=== PATIENT | male | born 1995 | race Caucasian/White ===

== ENCOUNTER 2023-10-05 17:23 | Inpatient (IN) | payer MEDICAID ==
[~2023-10-05] VITALS: Ht 180.3 cm; Wt 74.4 kg
[~2023-10-05 17:23] MED LIST: QUET100T PO; SERT-158 PO
[2023-10-05 18:25] LABS: BASOPHILS % (AUTO) 0.5 % (0.0-2.0); EOSINOPHILS % (AUTO) 0.3 % (1.0-6.0); HEMATOCRIT 38.9 % (41-53); HEMOGLOBIN 12.8 g/dL (13.5-17.5); LYMPHOCYTES # (AUTO) 1.4 K/uL (1.0-4.8); LYMPHOCYTES % (AUTO) 17.1 % (22.0-44.0); MEAN CORPUSCULAR HEMOGLOBIN 27.7 pg (26.0-34.0); MEAN CORPUSCULAR HGB CONC 32.8 G/dL (31.0-37.0); MEAN CORPUSCULAR VOLUME 84 fL (80-100); MONOCYTES # (AUTO) 0.8 K/uL (0.1-1.0); MONOCYTES % (AUTO) 9.8 % (2.0-9.0); NEUTROPHILS # (AUTO) 5.9 K/uL (1.8-7.7); NEUTROPHILS % (AUTO) 72.3 % (40.0-70.0); PLATELET COUNT (AUTO) 341 K/uL (150-450); RED BLOOD CELL COUNT(AUTO) 4.61 MIL/uL (4.50-5.90); RED CELL DISTRIBUTION WIDTH 15.4 % (11.5-14.5); WHITE BLOOD COUNT (AUTO) 8.2 K/uL (4.5-11.0)
[2023-10-05 18:35] LABS: ANION GAP 9 mmol/L (8-16); CARBON DIOXIDE 28 mmol/L (22-29); CHLORIDE 99 mmol/L (98-107); CREATININE 1.05 mg/dL (0.60-1.30); GLOMERULAR FILTR. RATE CALC > 60 mL/min (>60); GLUCOSE,RANDOM 122 mg/dL (70-110); POTASSIUM 3.4 mmol/L (3.5-5.1); SODIUM SERUM 136 mmol/L (136-145); UREA NITROGEN, BLOOD 9 mg/dL (7-18)
[2023-10-05 18:37] LABS: ALCOHOL, BLOOD (SERUM) < 3 mg/dL (0-10)
[2023-10-05 18:54] LABS: COVID AG,FIA SOURCE NPH
[2023-10-05 19:02] LABS: APPEARANCE,URINE CLEAR (CLEAR); BILIRUBIN,URINE NEGATIVE (NEGATIVE); GLUCOSE, URINE (UA) NEGATIVE (NEGATIVE); KETONES,URINE NEGATIVE (NEGATIVE); LEUKOCYTE ESTERASE ,URINE NEGATIVE (NEGATIVE); NITRATE,URINE NEGATIVE (NEGATIVE); OCCULT BLOOD,URINE NEGATIVE (NEGATIVE); PROTEIN,URINE NEGATIVE (NEGATIVE); SPECIFIC GRAVITIY, URINE 1.006 (1.003-1.030); UROBILINOGEN,URINE <=1.0 mg/dL (<=1.0)
[2023-10-05 19:04] LABS: COLOR,URINE DK YELLOW (YELLOW)
[2023-10-05 19:11] LABS: ALCOHOL, URINE DRUG SCREEN NEGATIVE (NEGATIVE); AMPHET/METH SCREEN,URINE POSITIVE (NEGATIVE); BARBITURATE SCREEN, URINE NEGATIVE (NEGATIVE); BENZODIAZEPINES SCREEN,URINE NEGATIVE (NEGATIVE); CANNABINOID SCREEN,URINE POSITIVE (NEGATIVE); COCAINE SCREEN,URINE NEGATIVE (NEGATIVE); METHADONE SCREEN, URINE NEGATIVE (NEGATIVE); OPIATE SCREEN,URINE NEGATIVE (NEGATIVE); PHENCYCLIDINE SCREEN,URINE NEGATIVE (NEGATIVE)
[2023-10-05 19:20] LABS: SARS-COV2 (COVID) ANTIGEN,FIA Negative (Negative)
[2023-10-05] MEDS: LORazepam 1 MG TABLET PO ONE (22:35)
[2023-10-06] MEDS: QUEtiapine FUMARATE 100 MG TABLET PO PRN (10:03)
[2023-10-06] MEDS: LORazepam 2 MG TABLET PO PRN (10:03)
[2023-10-07] MEDS: POTASSIUM CHLORIDE 20 MEQ ER TABLET PO ONE (20:16)
[2023-10-07 22:07] VITALS: BP 125/78; PULSE 72; RESP 18; TEMP 97.2; O2SAT 99
[2023-10-08] MEDS ORDERED: PNEUMOCOCCAL VACCINE POLYVALENT 0.5 ML SYRINGE [PPSV23] IM. ONE (01:15)
[2023-10-08 08:25] VITALS: BP 129/78; PULSE 88; RESP 18; TEMP 98.2; O2SAT 99
[2023-10-08] MEDS ORDERED: LOPERAMIDE HCL 2 MG CAPSULE PO PRN (09:00)
[2023-10-08] MEDS ORDERED: ALBUTEROL SULFATE HFA 90 MCG/PUFF 8 GM INHALER IH PRN (09:00)
[2023-10-08] MEDS ORDERED: ONDANSETRON HCL 4 MG TABLET PO PRN (09:00)
[2023-10-08] MEDS ORDERED: ACETAMINOPHEN 325 MG TABLET PO PRN (09:00)
[2023-10-08] MEDS ORDERED: MAG HYDROX/ALUMINUM HYD/SIMETH ES 30 ML SUSPENSION UDCUP PO PRN (09:00)
[2023-10-08] MEDS ORDERED: CloNIDine HCL 0.1 MG TABLET PO PRN (09:00)
[2023-10-08] MEDS ORDERED: MAGNESIUM HYDROXIDE SUSPENSION 30 ML UDCUP PO PRN (09:00)
[2023-10-08] MEDS ORDERED: IBUPROFEN 400 MG TABLET PO PRN (09:00)
[2023-10-08] MEDS ORDERED: DOCUSATE SODIUM 100 MG CAPSULE PO PRN (09:00)
[2023-10-08] MEDS ORDERED: PETROLATUM,WHITE 28 GM JELLY TP PRN (09:00)
[2023-10-08] MEDS ORDERED: NICOTINE 14 MG/24 HOUR PATCH TD PRN (09:00)
[2023-10-08] MEDS ORDERED: GuaiFENesin/D-METHORPHAN [SUGAR-FREE] 200-20MG/10 ML SYRUP UDCUP PO PRN (09:00)
[2023-10-08] MEDS: SERTRALINE HCL 50 MG TABLET PO SCH (12:35)
[2023-10-08 20:06] VITALS: BP 110/63; PULSE 101; RESP 16; TEMP 98.7; O2SAT 95
[2023-10-08] MEDS: QUEtiapine FUMARATE 100 MG TABLET PO SCH (20:30)
[2023-10-09 08:07] VITALS: BP 107/66; PULSE 66; RESP 16; TEMP 97.5; O2SAT 96
[2023-10-09 09:05] LABS: HEMOGLOBIN A1C 4.3 % (3.8-5.6)
[2023-10-09 09:27] LABS: THYROID STIMULATING HORMONE 1.66 uIU/mL (0.36-3.74)
[2023-10-09 20:09] VITALS: BP 115/67; PULSE 96; RESP 16; TEMP 98.6; O2SAT 96
[2023-10-09] MEDS: ZOLPIDEM TARTRATE 10 MG TABLET PO PRN (20:46)
[2023-10-10 04:40] VITALS: BP 115/69; PULSE 94; RESP 16; TEMP 97.8; O2SAT 97
[2023-10-10 08:02] VITALS: BP 112/67; PULSE 96; RESP 17; TEMP 97.9; O2SAT 97
[2023-10-10] MEDS ORDERED: QUET100T34 PO (11:09)
[2023-10-10] MEDS ORDERED: SERT-439 PO (11:09)
== END 2023-10-10 12:15 | disposition home or self-care (01) | DRG 750 ==
LOC: EMS 17:23 → B2X 10-07 17:50
PROVIDERS: ADMIT Psychiatry & Neurology Psychiatry; ATTEND Psychiatry & Neurology Psychiatry
PROC: GZHZZZZ Group Psychotherapy (ICD-10-PCS; principal; 2023-10-08)
PROC: GZ51ZZZ Individual Psychotherapy, Behavioral (ICD-10-PCS; 2023-10-08)
DX: F25.1 Schizoaffective disorder, depressive type (principal); R45.851 Suicidal ideations; F12.10 Cannabis abuse, uncomplicated; Z20.822 Contact with and (suspected) exposure to COVID-19; F15.10 Other stimulant abuse, uncomplicated; E87.6 Hypokalemia; D64.9 Anemia, unspecified; Z79.899 Other long term (current) drug therapy
CPT/HCPCS: 80048; 80061; 80307; 81003; 83036; 84132; 84443; 85025; 99285; G0480

== ENCOUNTER 2023-12-22 09:42 | Inpatient (IN) | payer MEDICAID, OTHER ==
[~2023-12-22] VITALS: Ht 177.8 cm; Wt 77.6 kg
[~2023-12-22 09:42] MED LIST changes: -QUET100T PO; +QUET100T34 PO; -SERT-158 PO; +SERT-439 PO
[2023-12-22 10:16] LABS: COVID AG,FIA SOURCE NASAL SWAB
[2023-12-22 10:18] LABS: BASOPHILS % (AUTO) 0.3 % (0.0-2.0); EOSINOPHILS % (AUTO) 0.4 % (1.0-6.0); HEMATOCRIT 39.9 % (41-53); LYMPHOCYTES # (AUTO) 2.4 K/uL (1.0-4.8); LYMPHOCYTES % (AUTO) 17.8 % (22.0-44.0); MEAN CORPUSCULAR HEMOGLOBIN 26.7 pg (26.0-34.0); MEAN CORPUSCULAR HGB CONC 32.7 G/dL (31.0-37.0); MEAN CORPUSCULAR VOLUME 82 fL (80-100); MONOCYTES # (AUTO) 1.1 K/uL (0.1-1.0); MONOCYTES % (AUTO) 8.2 % (2.0-9.0); NEUTROPHILS # (AUTO) 9.7 K/uL (1.8-7.7); NEUTROPHILS % (AUTO) 73.3 % (40.0-70.0); PLATELET COUNT (AUTO) 234 K/uL (150-450); RED BLOOD CELL COUNT(AUTO) 4.88 MIL/uL (4.50-5.90); RED CELL DISTRIBUTION WIDTH 17.2 % (11.5-14.5); WHITE BLOOD COUNT (AUTO) 13.3 K/uL (4.5-11.0)
[2023-12-22 10:28] LABS: ANION GAP 6 mmol/L (8-16); CALCIUM, TOTAL 8.2 mg/dL (8.8-10.5); CARBON DIOXIDE 30 mmol/L (22-29); CHLORIDE 100 mmol/L (98-107); CREATININE 0.85 mg/dL (0.60-1.30); GLOMERULAR FILTR. RATE CALC > 60 mL/min (>60); GLUCOSE,RANDOM 82 mg/dL (70-110); POTASSIUM 4.3 mmol/L (3.5-5.1); SODIUM SERUM 136 mmol/L (136-145); UREA NITROGEN, BLOOD 10 mg/dL (7-18)
[2023-12-22 10:38] LABS: SARS-COV2 (COVID) ANTIGEN,FIA Negative (Negative)
[2023-12-22 10:48] LABS: ALCOHOL, BLOOD (SERUM) < 3 mg/dL (0-10)
[2023-12-22 11:07] LABS: AMPHET/METH SCREEN,URINE NEGATIVE (NEGATIVE); BARBITURATE SCREEN, URINE NEGATIVE (NEGATIVE); BENZODIAZEPINES SCREEN,URINE NEGATIVE (NEGATIVE); CANNABINOID SCREEN,URINE POSITIVE (NEGATIVE); COCAINE SCREEN,URINE NEGATIVE (NEGATIVE); METHADONE SCREEN, URINE NEGATIVE (NEGATIVE); OPIATE SCREEN,URINE NEGATIVE (NEGATIVE); PHENCYCLIDINE SCREEN,URINE NEGATIVE (NEGATIVE)
[2023-12-22 11:09] LABS: ALCOHOL, URINE DRUG SCREEN NEGATIVE (NEGATIVE)
[2023-12-22 12:29] LABS: INFLUENZA TYPE A NEGATIVE FOR TYPE A (NEGATIVE); INFLUENZA TYPE B NEGATIVE FOR TYPE B (NEGATIVE)
[2023-12-22] MEDS: LORazepam 2 MG TABLET PO ONE (12:57)
[2023-12-22] MEDS: ACETAMINOPHEN 325 MG TABLET PO ONE (12:57)
[2023-12-22] MEDS: IBUPROFEN 400 MG TABLET PO ONE (19:53)
[2023-12-22] MEDS: HALOPERIDOL 5 MG TABLET PO PRN (19:53)
[2023-12-23] MEDS: LORazepam 2 MG TABLET PO PRN (01:31)
[2023-12-23] MEDS: ZOLPIDEM TARTRATE 10 MG TABLET PO PRN (01:31)
[2023-12-23 20:20] VITALS: BP 120/74; PULSE 122; RESP 18; TEMP 97.2; O2SAT 96
[2023-12-23 21:20] VITALS: BP 139/80; PULSE 120; RESP 18; TEMP 102; O2SAT 96
[2023-12-23 21:41] VITALS: BP 120/74; PULSE 122; RESP 18; TEMP 97.2; O2SAT 96
[2023-12-23] MEDS ORDERED: IBUPROFEN 200 MG TABLET PO PRN (22:15)
[2023-12-23] MEDS: ACETAMINOPHEN 325 MG TABLET PO PRN (22:19)
[2023-12-23 22:20] VITALS: BP 129/74; PULSE 115; RESP 18; TEMP 100.4; O2SAT 97
[2023-12-23 23:20] VITALS: BP 117/72; PULSE 110; RESP 17; TEMP 97.4; O2SAT 96
[2023-12-24] VITALS (7 sets, daily range): BP systolic 104–146; BP diastolic 62–78; PULSE 98–115; RESP 16–22; TEMP 97.1–99.8; O2SAT 95–98
[2023-12-24] MEDS: DIVALPROEX SODIUM 500 MG DR TABLET PO SCH (17:19)
[2023-12-25 00:04] VITALS: BP 146/78; PULSE 108; RESP 18; TEMP 97.1; O2SAT 98
[2023-12-25] MEDS: MAGNESIUM HYDROXIDE SUSPENSION 30 ML UDCUP PO PRN (08:28)
[2023-12-25 09:11] VITALS: BP 107/84; PULSE 122; RESP 18; TEMP 97.6; O2SAT 96
[2023-12-25 09:14] VITALS: BP 107/84; PULSE 122; RESP 18; TEMP 97.6; O2SAT 96
[2023-12-25] MEDS ORDERED: DIVA-112 PO (12:14)
[2023-12-25] MEDS ORDERED: DIVA-153 PO (12:17)
[2023-12-25] MEDS ORDERED: CloNIDine HCL 0.1 MG TABLET PO PRN (16:30)
[2023-12-25] MEDS ORDERED: MAG HYDROX/ALUMINUM HYD/SIMETH ES 30 ML SUSPENSION UDCUP PO PRN (16:30)
[2023-12-25] MEDS ORDERED: DOCUSATE SODIUM 100 MG CAPSULE PO PRN (16:30)
[2023-12-25] MEDS ORDERED: MAGNESIUM HYDROXIDE SUSPENSION 30 ML UDCUP PO PRN (16:30)
[2023-12-25] MEDS ORDERED: BACITRACIN 28 GM OINTMENT TP PRN (16:30)
[2023-12-25] MEDS ORDERED: ALBUTEROL SULFATE HFA 90 MCG/PUFF 8 GM INHALER IH PRN (16:30)
[2023-12-25] MEDS ORDERED: ONDANSETRON 4 MG TABLET PO PRN (16:30)
[2023-12-25] MEDS ORDERED: LOPERAMIDE HCL 2 MG CAPSULE PO PRN (16:30)
[2023-12-25] MEDS ORDERED: PETROLATUM,WHITE 28 GM JELLY TP PRN (16:30)
[2023-12-25] MEDS ORDERED: BENZOCAINE/MENTHOL LOZENGE PO PRN (16:30)
[2023-12-25] MEDS ORDERED: OMEPRAZOLE 20 MG CAPSULE PO PRN (16:30)
[2023-12-25] MEDS ORDERED: IBUPROFEN 600 MG TABLET PO PRN (16:30)
[2023-12-25] MEDS ORDERED: ACETAMINOPHEN 325 MG TABLET PO PRN (16:30)
== END 2023-12-25 18:48 | DRG 753 ==
LOC: EMS 09:43 → B2S 12-23 19:25
PROVIDERS: ADMIT Psychiatry & Neurology Psychiatry; ATTEND Psychiatry & Neurology Psychiatry
DX: F31.9 Bipolar disorder, unspecified (principal); R45.851 Suicidal ideations; F25.1 Schizoaffective disorder, depressive type; F12.10 Cannabis abuse, uncomplicated; F17.200 Nicotine dependence, unspecified, uncomplicated; Z20.822 Contact with and (suspected) exposure to COVID-19; K21.9 Gastro-esophageal reflux disease without esophagitis; K59.00 Constipation, unspecified; R74.01 Elevation of levels of liver transaminase levels; R05.9 Cough, unspecified; F41.9 Anxiety disorder, unspecified; F15.10 Other stimulant abuse, uncomplicated; Z79.899 Other long term (current) drug therapy
CPT/HCPCS: 71045; 80048; 80307; 85025; 87804; 99285; G0480; 36415-L1; 36415-TC